=== PATIENT | male | born 1960 | race Caucasian/White ===

== ENCOUNTER 2018-11-01 13:32 | Emergency (ER) | payer BC, OTHER ==
--- NOTE | 2018-11-01 14:27 | EDM.PDOC ---
ED HPI GENERAL MEDICAL PROBLEM - General Chief Complaint: Upper Extremity Injury/Pain Stated Complaint: HAND INJURY Time Seen by Provider: 11/01/18 14:26 Source of Information: Reports: Patient History Limitations: Reports: No Limitations - History of Present Illness INITIAL COMMENTS - FREE TEXT/NARRATIVE: Very pleasant 58 yo mal;e was working on a lattis(wood surface). His hand slipped an struck the back of his hand around (9:30 this am). He had not pain or swelling at time of injury. HE showered and noted swelling and pain. Patient took ASA without improvement. Patient present to ER concerned regarding fracture of left hand. - Related Data Allergies Allergy/AdvReac Type Severity Reaction Status Date / Time No Known Allergies Allergy Verified 11/01/18 14:30 Home Meds: Home Meds Metoprolol Tartrate 25 mg PO BID 11/01/18 [History] Pravastatin [Pravachol] 40 mg PO BEDTIME 11/01/18 [History] Ranitidine HCl [Ranitidine] 300 mg PO BID 11/01/18 [History] Review of Systems - Review of Systems Review Of Systems: ROS reveals no pertinent complaints other than HPI. ED EXAM, GENERAL - Physical Exam Exam: See Below Exam Limited By: No Limitations General Appearance: Alert, WD/WN, No Apparent Distress Eye Exam: Bilateral Eye: EOMI, PERRL Ears: Hearing Grossly Normal Nose: Normal Inspection Throat/Mouth: Normal Inspection, Normal Voice, No Airway Compromise Head: Atraumatic, Normocephalic Neck: Normal Inspection, Full Range of Motion Respiratory/Chest: No Respiratory Distress Cardiovascular: Normal Peripheral Pulses Extremities: Other (Left Hand: Bruising, hematoma with superficial abrasion noted dorsal aspect. Full ROM of fingers, with decreased valve assembler strength due to swelling. Median, Radial and Ulnar nerve fucntion and sensation intact. ) Neurological: Alert, Oriented, CN II-XII Intact, Normal Cognition, Normal Gait, Normal Reflexes, No Motor/Sensory Deficits Course - Vital Signs Last Recorded V/S: Last Vital Signs Temp 35.5 C 11/01/18 14:28 Pulse 88 11/01/18 14:28 Resp 16 11/01/18 14:28 BP 136/76 11/01/18 14:28 Pulse Ox 98 11/01/18 14:28 - Orders/Labs/Meds Orders: Active Orders 24 hr Category Date Time Status Hand Comp Min 3V Lt [CR] Stat Exams 11/01/18 14:26 Taken JEROD Bandage [Elastic Wrap] [OM.PC] Routine Oth 11/01/18 15:16 Ordered Departure - Departure Time of Disposition: 15:26 Disposition: Home, Self-Care 01 Clinical Impression: Contusion, hand - Discharge Information Instructions: Cryotherapy, [id number], Contusion, [id number] Referrals: PCP,None [Primary Care Provider] - 1 Week (recheck in 5-7 days if not improving sooner if symptoms worsen or concerns ) Forms: ED Department Discharge Additional Instructions: 1. Ice 15-20 minutes 3-4 times per day for swelling and pain. 2. Jerod wrap to help with swelling. 3. Ibuprofen 600-800mg every 6 hours with food for pain and swelling. 4. Topical antibiotic ointment over abrasion to prevent infection after cleansing with soap and water. 5. See PCP in 1-2 weeks if continued concerns or pain as small fracture may show up later. See PCP if new concern or infection (redness, swelling and warmth noted). - Problem List & Annotations (1) Contusion, hand SNOMED Code(s): 7762142 Code(s): S60.229A - CONTUSION OF UNSPECIFIED HAND, INITIAL ENCOUNTER Status : Acute Current Visit: Yes - My Orders Last 24 Hours: My Active Orders 11/01/18 14:26 Hand Comp Min 3V Lt [CR] Stat 11/01/18 15:16 JEROD Bandage [Elastic Wrap] [OM.PC] Routine - Assessment/Plan Last 24 Hours: My Active Orders 11/01/18 14:26 Hand Comp Min 3V Lt [CR] Stat 11/01/18 15:16 JEROD Bandage [Elastic Wrap] [OM.PC] Routine
--- NOTE | 2018-11-01 16:04 | CRLCR ---
HISTORY: Pain after injury. FINDINGS: Three views of the left hand are provided. No findings for fracture, dislocation or arthritic change. Dictated by Brian Rosales MD @ Nov 01 2018 4:01PM Signed by Dr. Brian Rosales @ Nov 01 2018 4:02PM
== END 2018-11-01 15:45 | disposition home or self-care (01) ==
LOC: JP.ED 13:32
DX: S60.222A Contusion of left hand, initial encounter (principal); Z79.899 Other long term (current) drug therapy; W22.8XXA Striking against or struck by other objects, initial encounter
CPT/HCPCS: 73130-LT; 99283-25